=== PATIENT | male | born 1965 | race Caucasian/White ===

== ENCOUNTER 2019-04-03 06:28 | Emergency (ER) | payer BC ==
[2019-04-03 06:38] VITALS: BP 156/95; PULSE 70; RESP 20; TEMP 98.6
[2019-04-03] MEDS ORDERED: SODIUM CHLORIDE 0.9% 1,000 ML IV STA (06:46)
--- NOTE | 2019-04-03 06:59 | ED ---
Abdominal Pain HPI - General Chief Complaint: Abdominal Pain Stated Complaint: Poss Kidney Stones Time Seen by Provider: 04/03/19 06:41 Source: patient, RN notes reviewed Mode of arrival: ambulatory Limitations: no limitations - History of Present Illness Initial Comments: This a 53-year-old male presents emergency Department with chief complaint left flank pain. Patient states that he's had 2 episodes last couple days with intense left flank pain that radiates to his lower abdomen. Patient states that the symptoms lasted approximately 45 minutes but now have recently resolved. Patient states she has no history kidney stones. Patient was seen at urgent care couple days ago and was told that he had blood in his urine. Patient denies any fevers, chills, dysuria, nausea or vomiting. Patient has been on recent antibiotics for toe infection states that he has some residual diarrhea from antibiotics. Patient offers no other complaints. Prior abdominal surgeries. - Related Data Home Medications Medication Instructions Recorded Confirmed Amoxicillin/Potassium Clav 1 tab PO Q12HR 04/03/19 04/03/19 [Augmentin 500-125 Tablet] Insulin Lispro [humaLOG Kwikpen] See Protocol SQ ACHS 04/03/19 04/03/19 Previous Rx's Medication Instructions Recorded Ibuprofen [Motrin] 600 mg PO Q8HR PRN #20 tab 04/03/19 Ondansetron Odt [Zofran Odt] 4 mg PO Q8HR PRN #10 tab 04/03/19 Tamsulosin [Flomax] 0.4 mg PO DAILY #7 cap 04/03/19 Allergies Allergy/AdvReac Type Severity Reaction Status Date / Time No Known Allergies Allergy Verified 04/03/19 07:42 Review of Systems ROS Statement: Those systems with pertinent positive or pertinent negative responses have been documented in the HPI. ROS Other: All systems not noted in ROS Statement are negative. 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 Absent: scleral icterus, conjunctival injection, periorbital swelling ENT exam: Present: normal exam, normal oropharynx, mucous membranes moist Neck exam: Present: normal inspection, full ROM. Absent: tenderness, meningismus, lymphadenopathy Respiratory exam: Present: normal lung sounds bilaterally. Absent: respiratory distress, wheezes, rales, rhonchi, stridor Cardiovascular Exam: Present: regular rate, normal rhythm, normal heart sounds. Absent: systolic murmur, diastolic murmur, rubs, gallop, clicks GI/Abdominal exam: Present: soft, normal bowel sounds. Absent: distended, tenderness, guarding, rebound, rigid Back exam: Absent: CVA tenderness (R), CVA tenderness (L) Neurological exam: Present: alert Skin exam: Present: warm, dry, intact, normal color. Absent: rash Course Vital Signs 04/03/19 06:34 Temperature 98.6 F Pulse Rate 70 Respiratory 20 Rate Blood Pressure 156/95 O2 Sat by Pulse 99 Oximetry Medical Decision Making - Medical Decision Making CT shows evidence of a 3-4 mm ureteral calculi on the left. Patient is in no discomfort at this time. Patient will be provided Flomax, anti-inflammatories, pain medication. Patient will follow-up with urology return parameters discussed. - Lab Data Result diagrams: 04/03/19 07:17 04/03/19 07:17 Lab Results 04/03/19 04/03/19 04/03/19 Range/Units 07:17 07:17 07:17 WBC 4.3 (3.8-10.6) k/uL RBC 4.89 (4.30-5.90) m/uL Hgb 14.9 (13.0-17.5) gm/dL Hct 42.8 (39.0-53.0) % MCV 87.5 (80.0-100.0) fL MCH 30.5 (25.0-35.0) pg MCHC 34.9 (31.0-37.0) g/dL RDW 13.2 (11.5-15.5) % Plt Count 234 (150-450) k/uL Neutrophils % 63 % Lymphocytes % 22 % Monocytes % 9 % Eosinophils % 4 % Basophils % 1 % Neutrophils # 2.7 (1.3-7.7) k/uL Lymphocytes # 0.9 L (1.0-4.8) k/uL Monocytes # 0.4 (0-1.0) k/uL Eosinophils # 0.2 (0-0.7) k/uL Basophils # 0.0 (0-0.2) k/uL Sodium 139 (137-145) mmol/L Potassium 4.5 (3.5-5.1) mmol/L Chloride 107 (98-107) mmol/L Carbon Dioxide 25 (22-30) mmol/L Anion Gap 7 mmol/L BUN 16 (9-20) mg/dL Creatinine 1.01 (0.66-1.25) mg/dL Est GFR (CKD-EPI)AfAm >90 (>60 ml/min/1.73 sqM) Est GFR (CKD-EPI)NonAf 86 (>60 ml/min/1.73 sqM) Glucose 228 H (74-99) mg/dL Calcium 9.3 (8.4-10.2) mg/dL Total Bilirubin 0.7 (0.2-1.3) mg/dL AST 27 (17-59) U/L ALT 46 (21-72) U/L Alkaline Phosphatase 45 (38-126) U/L Total Protein 6.6 (6.3-8.2) g/dL Albumin 4.0 (3.5-5.0) g/dL Amylase 42 (30-110) U/L Lipase 93 (23-300) U/L Urine Color Yellow Urine Appearance Clear (Clear) Urine pH 6.0 (5.0-8.0) Ur Specific [place] 1.019 (1.001-1.035) Urine Protein Trace H (Negative) Urine Glucose (UA) 1+ H (Negative) Urine Ketones Negative (Negative) Urine Blood Large H (Negative) Urine Nitrite Negative (Negative) Urine Bilirubin Negative (Negative) Urine Urobilinogen <2.0 (<2.0) mg/dL Ur Leukocyte Esterase Negative (Negative) Urine RBC >182 H (0-5) /hpf Urine WBC 3 (0-5) /hpf Ur Squamous Epith Cells <1 (0-4) /hpf Urine Mucus Few H (None) /hpf Disposition Clinical Impression: Left ureteral calculus Disposition: HOME SELF-CARE Condition: Stable Instructions (If sedation given, give patient instructions): Kidney Stones (ED) Additional Instructions: Please return to the Emergency Department if symptoms worsen or any other concerns. Prescriptions: Tamsulosin [Flomax] 0.4 mg PO DAILY #7 cap Ibuprofen [Motrin] 600 mg PO Q8HR PRN #20 tab PRN Reason: Pain Ondansetron Odt [Zofran Odt] 4 mg PO Q8HR PRN #10 tab PRN Reason: Nausea Is patient prescribed a controlled substance at d/c from ED?: No Referrals: Nonstaff,Physician [Primary Care Provider] - 1-2 days Time of Disposition: 07:56
[2019-04-03 07:36] LABS: Basophils % (A) 1 %; Eosinophils # (A) 0.2 k/uL (0-0.7); Eosinophils % (A) 4 %; HCT 42.8 % (39.0-53.0); HGB 14.9 gm/dL (13.0-17.5); Lymphocytes # (A) 0.9 k/uL (1.0-4.8); Lymphocytes % (A) 22 %; MCH 30.5 pg (25.0-35.0); MCHC 34.9 g/dL (31.0-37.0); MCV 87.5 fL (80.0-100.0); Mean Platelet Volume 6.1; Monocytes # (A) 0.4 k/uL (0-1.0); Monocytes % (A) 9 %; Neutrophils # (A) 2.7 k/uL (1.3-7.7); Neutrophils % (A) 63 %; Platelet Count 234 k/uL (150-450); RBC 4.89 m/uL (4.30-5.90); RDW 13.2 % (11.5-15.5); WBC 4.3 k/uL (3.8-10.6)
[2019-04-03 07:41] LABS: ALT 46 U/L (21-72); AST 27 U/L (17-59); African American GFR (CKD) >90 (>60 ml/min/1.73 sqM); Alkaline Phosphatase 45 U/L (38-126); Amylase 42 U/L (30-110); Anion Gap 7 mmol/L; Blood Urea Nitrogen 16 mg/dL (9-20); Calcium 9.3 mg/dL (8.4-10.2); Carbon Dioxide 25 mmol/L (22-30); Chloride 107 mmol/L (98-107); Glucose 228 mg/dL (74-99); Potassium 4.5 mmol/L (3.5-5.1); Sodium 139 mmol/L (137-145); Total Bilirubin 0.7 mg/dL (0.2-1.3); Total Protein 6.6 g/dL (6.3-8.2)
[2019-04-03 07:45] LABS: Appearance,Urine Clear (Clear); Bilirubin,Urine Negative (Negative); Blood,Urine Large (Negative); Color,Urine Yellow; Glucose,Urine (UA) 1+ (Negative); Ketones,Urine Negative (Negative); Leukocyte Esterase,Urine Negative (Negative); Mucus,Urine Few /hpf; Nitrite,Urine Negative (Negative); Protein,Urine Trace (Negative); RBC,Urine >182 /hpf (0-5); Specific Gravity,Urine 1.019 (1.001-1.035); Squamous Epithelial Cell,Urine <1 /hpf (0-4); Urobilinogen,Urine <2.0 mg/dL (<2.0)
--- NOTE | 2019-04-03 07:48 | CT ---
EXAMINATION TYPE: CT abdomen pelvis wo con DATE OF EXAM: 04/03/2019 HISTORY: Lt flank pain anterior hematuria. CT DLP: 1239.4 mGycm. Automated Exposure Control for Dose Reduction was Utilized. TECHNIQUE: CT scan of the abdomen and pelvis is performed without oral or IV contrast. COMPARISON: NONE FINDINGS: Within the limitations of a non-contrast study, the following observations are made. LUNG BASES: No significant abnormality is appreciated. LIVER/GB: Liver is diffusely low dense consistent with fatty infiltration. Rim calcified 1.5 cm galls tone dependently axial image 47. There is 3-4 mm calculus in mid to distal left ureter axis image 120 near level of pelvic brim causing mild to minimal left-sided pyelocaliectasis and proximal hydrouret er and minimal left-sided perinephric fat stranding. No right-sided renal calculi or hydronephrosis. Occasional scattered pelvic phleboliths. No intraluminal calculus and bladder. PANCREAS: No significant abnormality is seen. SPLEEN: No significant abnormality is seen. ADRENALS: No significant abnormality is seen. KIDNEYS: No significant abnormality is seen. BOWEL: Occasional diverticula scattered throughout the colon. No suspicious small or large bowel dila tation. GENITAL ORGANS: No gross abnormality seen. LYMPH NODES: No greater than 1cm abdominal or pelvic lymph nodes are appreciated. OSSEOUS STRUCTURES: No significant abnormality is seen. OTHER: No significant additional abnormality is seen. IMPRESSION: There is 3 to 4 mm distal left ureter calculus causing mild to minimal left-sided hydrone phrosis.
[2019-04-03] MEDS ORDERED: ACET/COD 300 MG/30 MG STARTER PACK 6 TAB BTL PO STA (07:57)
== END 2019-04-03 08:11 | disposition home or self-care (01) ==
LOC: EC 06:28
DX: N20.1 Calculus of ureter (principal); L08.9 Local infection of the skin and subcutaneous tissue, unspecified; R19.7 Diarrhea, unspecified; T36.0X5A Adverse effect of penicillins, initial encounter; E11.9 Type 2 diabetes mellitus without complications; Z79.4 Long term (current) use of insulin
CPT/HCPCS: 36415; 74176; 80053; 81001; 82150; 83690; 85025; 96360; 99284